=== PATIENT | male | born 1950 | race African-American/Black ===

== ENCOUNTER 2017-04-25 04:45 | Emergency (ER) | payer MEDICARE, MEDICAID ==
[~2017-04-25] VITALS: Ht 190.5 cm; Wt 101.6 kg
[~2017-04-25 04:45] MED LIST: UNOBMED
--- NOTE | 2017-04-25 05:02 | Emergency Room Report ---
History of Present Illness General Chief Complaint: Dizziness Source: Patient Present Illness HPI This is a 67-year-old male with a history of sick sinus syndrome status post pacemaker, hypertension and diabetes. He presents with chief complaint of dizziness. Onset was about an hour ago. He said he was looking for his [employer] truck and he felt dizzy. Described as the room spinning. [place] staggering on his feet. No nausea no vomiting. He said is not homeless at EMS picked him up on the street. Denies any other complaint. No chest pain. No nausea no vomiting. No focal deficit. No fever. He has a slight cold. Allergies: Coded Allergies: No Known Allergies (Unverified , 04/25/17) Patient History Past Medical History: see triage record, old chart reviewed, DM, HTN Past Surgical History: pacemaker Pertinent Family History: none Social History: Denies: alcohol use, drug use, smoking Immunizations: other Reviewed Nursing Documentation: PMH: Agreed, PSxH: Agreed Nursing Documentation-PMH Hx Cardiac Problems: Yes - Pacemaker Hx Hypertension: Yes Hx Diabetes: Yes Review of Systems Eye: Denies: blurred vision, eye pain ENT: Denies: ear pain, nose congestion, throat swelling Respiratory: Denies: cough, shortness of breath Cardiovascular: Denies: chest pain, palpitations Gastrointestinal: Denies: abdominal pain, diarrhea, nausea, vomiting Musculoskeletal: Denies: back pain, joint pain Skin: Denies: rash Neurological: Reports: dizziness, Denies: headache, numbness Endocrine: Denies: increased thirst, increased urine Hematologic/Lymphatic: Denies: easy bruising All Other Systems: negative except mentioned in HPI Physical Exam Vital Signs Date Time Temp Pulse Resp B/P Pulse Ox O2 Delivery O2 Flow Rate FiO2 04/25/17 04:36 97.0 63 16 160/89 100 Room Air vitals with hypertension Sp02 EP Interpretation: reviewed, normal General Appearance: well appearing, no apparent distress, alert Head: normocephalic, atraumatic Eyes: bilateral eye EOMI, bilateral eye PERRL ENT: hearing grossly normal, normal pharynx Neck: full range of motion, supple, no meningismus Respiratory: chest non-tender, lungs clear, normal breath sounds Cardiovascular #1: regular rate, rhythm, no murmur Gastrointestinal: normal bowel sounds, non tender, no mass, no organomegaly, no bruit, non-distended Musculoskeletal: back normal, gait/station normal, normal range of motion Psychiatric: mood/affect normal Skin: warm/dry Medical Decision Making Diagnostic Impression: Primary Impression: Dizziness ER Course Patient with dizziness. No focal deficit. No evidence of ACS, PE, TIA or CVA tenderness a few. He is walking without any difficulty. May be vertigo symptoms. He refuse to give a urine for urinalysis. Lab Results Impression labs unremarkable EKG Diagnostic Results EKG Time: 05:01 Rate: normal Rhythm: NSR ST Segments: other - NSST changes Rhythm Strip Diag. Results Rhythm Strip Time: 05:01 EP Interpretation: yes Rhythm: NSR, no PVC's, no ectopy, other - NSST changes Chest X-Ray Diagnostic Results Chest X-Ray Diagnostic Results : Chest X-Ray Ordered: Yes # of Views/Limited/Complete: 1 View Indication: Other - ams EP Interpretation: Yes Interpretation: no consolidation, no effusion, no pneumothorax, no acute cardiopulmonary disease Impression: No acute disease Interpreting ER Provider: Electronically signed by Leander Alaniz MD CT/MRI/US Diagnostic Results CT/MRI/US Diagnostic Results : Imaging Test Ordered: CT head Impression read by radiologist. Chronic changes. Last Vital Signs Date Time Temp Pulse Resp B/P Pulse Ox O2 Delivery O2 Flow Rate FiO2 04/25/17 04:36 97.0 63 16 160/89 100 Room Air Status: improved Disposition: HOME, SELF-CARE Condition: Stable Scripts Meclizine Hcl* (MECLIZINE*) 25 Mg Tablet 25 MG ORAL THREE TIMES A DAY, #30 TAB Prov: LEANDER ALANIZ M.D. 04/25/17 Patient Instructions: Dizziness Additional Instructions: Followup with your DrMatt in 7 days. Return if symptom worsen the LEANDER ALANIZ M.D. Apr 25, 2017 05:02
[2017-04-25 05:08] LABS: EOSINOPHILS % (AUTO) 0.5 % (0.0-3.0); LYMPHOCYTES % (AUTO) 26.6 % (20.0-45.0); MEAN CORPUSCULAR HEMOGLOBIN 30.1 PG (27.0-31.0); MEAN CORPUSCULAR HGB CONC 32.5 G/DL (32.0-36.0); MEAN CORPUSCULAR VOLUME 93 FL (80-99); MEAN PLATELET VOLUME 10.2 FL (6.5-10.1); MONOCYTES % (AUTO) 13.3 % (1.0-10.0); NEUTROPHILS % (AUTO) 57.6 % (45.0-75.0); PLATELET COUNT 124 K/UL (150-450); RED BLOOD COUNT 4.67 M/UL (4.70-6.10); RED CELL DISTRIBUTION WIDTH 12.8 % (11.6-14.8); WHITE BLOOD COUNT 4.2 K/UL (4.8-10.8)
[2017-04-25 05:26] LABS: TROPONIN I < 0.30 ng/mL (<=0.30)
[2017-04-25 05:29] LABS: ALANINE AMINOTRANSFERASE 15 U/L (3-41); ALBUMIN/GLOBULIN RATIO 1.1 (1.0-2.7); ANION GAP 11 (5-15); ASPARTATE AMINO TRANSFERASE 23 U/L (5-40); CALCIUM 8.9 mg/dL (8.6-10.2); CARBON DIOXIDE 27 mEQ/L (20-30); CHLORIDE 101 mEQ/L (98-107); GLOMERULAR FILTRATION RATE > 60 mL/min (>60); HEMOLYSIS 12; POTASSIUM 3.8 mEQ/L (3.4-4.9); SODIUM 139 mEQ/L (135-145); TOTAL PROTEIN 7.3 g/dL (6.6-8.7)
[2017-04-25 05:30] VITALS: BP 165/75
[2017-04-25 05:39] LABS: CKMB 5.7 ng/mL (< 6.7)
[2017-04-25] MEDS ORDERED: MECLIZINE HCL25 MG ORAL (06:11)
[2017-04-25 06:50] VITALS: BP 194/97
--- NOTE | 2017-04-25 10:17 | Diagnostic Imaging Report ---
Indication: Altered mental status Technique: Contiguous 5 mm thick transaxial imaging of the head obtained in a Siemens Sensation [address] scanner. Soft tissue and bone windows generated. Total Dose length Product (DLP): [address] Dose Index Volume (CTDIvol): 70.38 mGy Comparison: none Findings: Mild, nonspecific, white matter hypoattenuation is noted throughout the brain consistent with chronic small vessel disease. Slight symmetric low density noted in the right cerebellum. This is probably chronic small vessel disease as well. There is no midline shift, edema, acute hemorrhage, mass effect, or abnormal extra-axial fluid collections. There are bilateral medial orbital wall fractures. These are probably old. Please correlate clinical. Impression: No acute intracranial bleed, mass effect or edema. Nonspecific white matter hypoattenuation probably due to chronic small vessel disease. [facility] has communicated the preliminary results to the Emergency Department. Their findings are largely concordant with this report. The CT scanner at [facility] is accredited by the [employer] and the scans are performed using dose optimization techniques as appropriate to a performed exam including Automatic Exposure control.
--- NOTE | 2017-04-25 11:11 | Diagnostic Imaging Report ---
Indication: Dyspnea Comparison: None A single view chest radiograph was obtained. Findings: Cardiomediastinal appearance is within normal limits for age. There is a pacemaker in the left anterior chest wall. Pulmonary vascularity is appropriate. The diaphragmatic contour is smooth and costophrenic angles are sharp. No pleural effusions are identified. The bones are unremarkable. Impression: No acute findings
== END 2017-04-25 06:45 | disposition home or self-care (01) ==
LOC: EDBD 04:45 → EMR 04:50
DX: R42 Dizziness and giddiness (principal); I10 Essential (primary) hypertension; E11.9 Type 2 diabetes mellitus without complications; Z95.0 Presence of cardiac pacemaker
CPT/HCPCS: 36415; 70450; 71010; 80053; 82550; 82553; 84484; 85025; 93005; 96360